=== PATIENT | female | born 1980 | race Caucasian/White ===

== ENCOUNTER 2021-08-05 11:20 | Emergency (ER) | payer OTHER ==
[~2021-08-05] VITALS: Ht 162.6 cm; Wt 86.2 kg
--- NOTE | 2021-08-05 11:20 | NUR ---
Placed in room 5 . Placed on residential monitor, blood pressure machine and pulse oximeter. To gown for exam. Side rails up.
--- NOTE | 2021-08-05 11:25 | NUR ---
Pt bib EMS from home with c/o generalized weakness today. Was with her father who was having a procedure and she felt "weak". H/O anxiety. V/S stable, no acute distress noted.
[2021-08-05 11:26] VITALS: BP_SYST 158
--- NOTE | 2021-08-05 11:40 | NUR ---
ER Dr. Seo at bedside examining patient.
[2021-08-05] MEDS ORDERED: LORazepam 1 MG TABLET PO ONE (12:00)
[2021-08-05] MEDS ORDERED: KETOROLAC TROMETHAMINE 60 MG/2 ML VIAL IM ONE (12:00)
[2021-08-05 12:18] LABS: BASOPHILS # (AUTO) 0.1 K/uL (0.0-0.2); BASOPHILS % (AUTO) 0.5 % (0.0-2.0); HEMATOCRIT 43.4 % (36-48); HEMOGLOBIN 14.8 g/dL (12.0-16.0); LYMPHOCYTES # (AUTO) 1.7 K/uL (1.0-5.5); LYMPHOCYTES % (AUTO) 12.5 % (20.5-51.5); MEAN CORPUSCULAR HEMOGLOBIN 32 pg (27-31); MEAN CORPUSCULAR HGB CONC 34 % (32-36); MEAN CORPUSCULAR VOLUME 92 fL (79.0-98.0); MONOCYTES # (AUTO) 0.5 K/uL (0.0-1.0); MONOCYTES % (AUTO) 3.8 % (1.7-9.3); NEUTROPHILS # (AUTO) 11.1 K/uL (1.8-7.7); NEUTROPHILS % (AUTO) 83.2 % (40.0-70.0); PLATELET COUNT (AUTO) 241 K/uL (130-430); WHITE BLOOD COUNT (AUTO) 13.4 K/uL (4.8-10.8)
[2021-08-05 12:29] LABS: CALCIUM 10.2 mg/dL (8.4-11.0); CREATININE 1.08 mg/dL (0.55-1.30); POTASSIUM 3.6 mmol/L (3.5-5.1)
[2021-08-05 12:40] LABS: ALBUMIN 4.5 g/dL (3.4-4.8); TOTAL BILIRUBIN 0.3 mg/dL (0.0-1.0)
[2021-08-05] MEDS ORDERED: ONDA-8 TL (13:53)
[2021-08-05] MEDS ORDERED: TRAM50TA PO (13:53)
[2021-08-05] MEDS ORDERED: HYDROcodone/ACETAMIN 5-325 MG TAB (NORCO/ VICODIN) PO ONE (14:00)
[2021-08-05] MEDS ORDERED: ONDANSETRON 4 MG ODT TAB PO ONE (14:00)
[2021-08-05 14:04] VITALS: BP_SYST 158
--- NOTE | 2021-08-05 14:05 | NUR ---
Patient given written and verbal discharge instructions and verbalizes understanding. ER MD discussed with patient the results and treatment provided. Patient in stable condition. ID arm band removed. Rx of Tramadol and Zofran given. Patient educated on pain management and to follow up with PMD. Pain Scale 0. Opportunity for questions provided and answered. Medication side effect fact sheet provided.
== END 2021-08-05 14:04 | disposition home or self-care (01) ==
LOC: SED 12:16
DX: R10.9 Unspecified abdominal pain (principal); R06.4 Hyperventilation; Z79.899 Other long term (current) drug therapy
CPT/HCPCS: 36415; 74018; 80053; 81002; 81025; 83690; 85025; 96372; 99284; J1885; Q0162

== ENCOUNTER 2023-04-08 17:19 | Emergency (ER) | payer OTHER ==
[~2023-04-08] VITALS: Ht 162.6 cm; Wt 83.9 kg
[~2023-04-08 17:19] MED LIST: ONDA-8 TL; TRAM50TA PO
[2023-04-08 17:39] VITALS: BP_SYST 128
[2023-04-08 19:30] VITALS: BP_SYST 134
== END 2023-04-08 20:02 | disposition home or self-care (01) ==
LOC: SED 17:19
DX: I83.92 Asymptomatic varicose veins of left lower extremity (principal); M79.662 Pain in left lower leg; Z79.899 Other long term (current) drug therapy
CPT/HCPCS: 93971; 99284